=== PATIENT | female | born 1970 | race African-American/Black ===

== ENCOUNTER 2022-03-16 09:45 | Inpatient (IN) | payer MEDICAID, OTHER ==
[~2022-03-16] VITALS: Ht 162.6 cm; Wt 99.1 kg
[2022-03-16] MEDS ORDERED: MORPHINE SULFATE 4 MG/ML CPJ (NOT FOR IM USE) IV ONE ×2 (10:00→11:00)
[2022-03-16 10:23] LABS: BASOPHILS % 0.6 % (0.0-2.0); EOSINOPHILS % 0.8 % (0.0-5.0); HEMATOCRIT. 41.2 % (36.0-48.0); HEMOGLOBIN. 13.6 g/dL (12.0-16.0); LYMPHOCYTES % 27.2 % (20.0-50.0); MEAN CORPUSCULAR HEMOGLOBIN 30.7 pg (28.0-32.0); MEAN PLATELET VOLUME 9.7 fl (7.4-10.4); NEUTROPHILS % 64.4 % (40.0-76.0); PLATELET 241 x1000/uL (130-400); RED BLOOD CELL COUNT 4.43 mill/uL (4.2-5.4); RED CELL DISTRIBUTION WIDTH 14.6 % (11.6-14.6)
[2022-03-16 10:34] LABS: CHLORIDE 104 mEq/L (98-107)
[2022-03-16 10:49] LABS: HCG SCREEN NEGATIVE
[2022-03-16] MEDS ORDERED: IOHEXOL-350 100 ML BOTTLE ONE (11:58)
[2022-03-16] MEDS ORDERED: CLONIDINE 0.1MG TABLET PO PRN (13:00)
[2022-03-16] MEDS ORDERED: MORPHINE SULFATE 2 MG/ML CPJ (NOT FOR IM USE) IV PRN (13:00)
[2022-03-16] MEDS ORDERED: ONDANSETRON HCL 4MG/2ML INJ IV PRN (13:00)
[2022-03-16] MEDS ORDERED: ACETAMINOPHEN 325MG TABLET PO PRN ×2 (13:00)
[2022-03-16] MEDS ORDERED: DOCUSATE SODIUM 100MG CAPSULE PO PRN (13:00)
[2022-03-16] MEDS ORDERED: IPRATROPIUM/ALBUTEROL 0.5-3(2.5)MG/3ML NEB HHN PRN (13:00)
[2022-03-16] MEDS ORDERED: LORAZEPAM 0.5MG TABLET PO PRN (13:00)
[2022-03-16] MEDS: HYDROCODONE/ACETAMINOPHEN 5/325MG TABLET PO PRN ×2 (13:14→21:00)
[2022-03-16] MEDS ORDERED: NALOXONE HCL 0.4MG/ML VIAL IV PRN (13:15)
[2022-03-16 20:19] LABS: HEPATITIS B SURFACE ANTIGEN NEGATIVE
[2022-03-17] VITALS (7 sets, daily range): BP systolic 99–129; BP diastolic 47–67
[2022-03-17] MEDS ORDERED: ATOR20TA65 PO (00:11)
[2022-03-17] MEDS ORDERED: AMLO1CAP5 PO (00:11)
[2022-03-17 06:29] LABS: CHLORIDE 103 mEq/L (98-107)
[2022-03-17 06:36] LABS: BASOPHILS % 0.5 % (0.0-2.0); EOSINOPHILS % 1.8 % (0.0-5.0); HEMATOCRIT. 39.9 % (36.0-48.0); HEMOGLOBIN. 13.4 g/dL (12.0-16.0); LYMPHOCYTES % 25.2 % (20.0-50.0); MEAN CORPUSCULAR HEMOGLOBIN 30.9 pg (28.0-32.0); MEAN CORPUSCULAR VOLUME 91.7 fL (81.0-99.0); MEAN PLATELET VOLUME 9.9 fl (7.4-10.4); MONOCYTES % 8.9 % (2.0-8.0); NEUTROPHILS % 63.6 % (40.0-76.0); PLATELET 245 x1000/uL (130-400); RED BLOOD CELL COUNT 4.35 mill/uL (4.2-5.4); RED CELL DISTRIBUTION WIDTH 14.8 % (11.6-14.6)
[2022-03-17] MEDS ORDERED: POTASSIUM CHLORIDE 20MEQ TABLET SR PO SCH (09:00)
[2022-03-17] MEDS: HYDROCODONE/ACETAMINOPHEN 5/325MG TABLET PO PRN (11:07)
[2022-03-18 00:17] VITALS: BP 132/53
[2022-03-18 04:00] VITALS: BP 126/54
[2022-03-18 08:00] VITALS: BP 123/64
[2022-03-18 09:06] LABS: MEAN CORPUSCULAR HEMOGLOBIN 30.7 pg (28.0-32.0); MEAN CORPUSCULAR VOLUME 92.5 fL (81.0-99.0); MEAN PLATELET VOLUME 10.7 fl (7.4-10.4); PLATELET 274 x1000/uL (130-400); RED BLOOD CELL COUNT 4.54 mill/uL (4.2-5.4); RED CELL DISTRIBUTION WIDTH 14.9 % (11.6-14.6)
[2022-03-18 09:24] LABS: CHLORIDE 103 mEq/L (98-107)
[2022-03-18 09:31] LABS: HDL CHOLESTEROL 44 mg/dL (40-59); LDL CHOLESTEROL 174 mg/dL (5-100)
[2022-03-18 09:44] LABS: VITAMIN B12 SERUM 724 pg/mL (211-911)
[2022-03-18 12:00] VITALS: BP 119/59
[2022-03-18 16:00] VITALS: BP 125/62
[2022-03-18 23:25] LABS: PLATELET ESTIMATE NORMAL
== END 2022-03-18 15:44 | disposition left against medical advice (07) | DRG 445 ==
LOC: ER 09:45 → 7EST 12:20 → EDBEDREQ 12:23 → EDBEDREQTM 12:23 → ENRESERV 22:31
PROVIDERS: ADMIT Internal Medicine; ATTEND Internal Medicine
DX: K80.70 Calculus of gallbladder and bile duct without cholecystitis without obstruction (principal); I16.1 Hypertensive emergency; R17 Unspecified jaundice; E78.5 Hyperlipidemia, unspecified; Z20.822 Contact with and (suspected) exposure to COVID-19; E66.9 Obesity, unspecified; E87.6 Hypokalemia; I07.1 Rheumatic tricuspid insufficiency; I10 Essential (primary) hypertension; R74.01 Elevation of levels of liver transaminase levels; R78.5 Finding of other psychotropic drug in blood; Z68.37 Body mass index [BMI] 37.0-37.9, adult; Z98.891 History of uterine scar from previous surgery; Z90.710 Acquired absence of both cervix and uterus; Z53.29 Procedure and treatment not carried out because of patient's decision for other reasons
CPT/HCPCS: 36415; 71045; 71275; 74181; 76705; 80048; 80053; 80061; 80076; 82150; 82248; 82607; 82962; 83880; 84484; 84703; 85025; 86301; 86705; 86709; 86803; 87340; 87426; 93005; 93306; 99285; J2270; J2405; Q9967